=== PATIENT | female | born 1980 | race Caucasian/White ===

== ENCOUNTER 2019-11-15 11:09 | Emergency (ER) | payer MEDICAID ==
[~2019-11-15] VITALS: Ht 167.6 cm; Wt 83.6 kg
[~2019-11-15 11:09] MED LIST: PREN-84 PO
[2019-11-15 11:12] VITALS: BP 114/74
[2019-11-15] MEDS ORDERED: TETanus/Pertussis (Acell)/Diphther VAC/PF (Tdap-Adult) 0.5ml syringe IMVAC ONE (12:40)
[2019-11-15] MEDS ORDERED: bacitracin 15gm ointment TP ONE (12:40)
== END 2019-11-15 13:20 | disposition home or self-care (01) ==
LOC: ER 11:10
DX: S90.812A Abrasion, left foot, initial encounter (principal); M79.672 Pain in left foot; Z72.89 Other problems related to lifestyle; Z79.899 Other long term (current) drug therapy; W22.8XXA Striking against or struck by other objects, initial encounter; Y93.89 Activity, other specified; Y92.89 Other specified places as the place of occurrence of the external cause; Y99.8 Other external cause status
CPT/HCPCS: 73630; 90471; 90715; 99283

== ENCOUNTER 2020-04-17 15:52 | Emergency (ER) | payer MEDICAID ==
[~2020-04-17] VITALS: Ht 167.6 cm; Wt 83.6 kg
== END 2020-04-17 16:14 | disposition home or self-care (01) ==
LOC: ER 15:53
DX: U07.1 COVID-19 (principal); F12.10 Cannabis abuse, uncomplicated; Z79.899 Other long term (current) drug therapy
CPT/HCPCS: 36415; 87635; 99283

== ENCOUNTER 2021-11-14 18:58 | Emergency (ER) | payer MEDICAID ==
[~2021-11-14] VITALS: Ht 167.6 cm; Wt 84.7 kg
[2021-11-14 19:23] VITALS: BP 142/97
[2021-11-14] MEDS ORDERED: ketorolac tromethamine 15mg/ml inj. IM ONE (19:45)
[2021-11-14] MEDS ORDERED: CEPH250T PO (19:52)
== END 2021-11-14 20:11 | disposition home or self-care (01) ==
LOC: ER 18:59
DX: S91.312A Laceration without foreign body, left foot, initial encounter (principal); Z79.2 Long term (current) use of antibiotics; W45.8XXA Other foreign body or object entering through skin, initial encounter; Y93.89 Activity, other specified; Y92.89 Other specified places as the place of occurrence of the external cause; Y99.8 Other external cause status
CPT/HCPCS: 73610; 96372; 99283; J1885

== ENCOUNTER 2022-09-14 08:22 | Emergency (ER) | payer MEDICAID ==
[~2022-09-14] VITALS: Ht 167.6 cm; Wt 83.8 kg
[2022-09-14 08:25] VITALS: BP 126/88
[2022-09-14] MEDS ORDERED: LIDOcaine 5% patch TP STA (08:57)
[2022-09-14] MEDS ORDERED: ketorolac trometh inj. 60 MG/2 ML VIAL IM ONE (09:00)
[2022-09-14] MEDS ORDERED: LIDO-15 TD (09:15)
[2022-09-14] MEDS ORDERED: ketorolac trometh. 30mg/ml inj. IM ONE (09:15)
[2022-09-14] MEDS ORDERED: IBUP-1986 PO (09:15)
[2022-09-14] MEDS ORDERED: DICL100G30 TOP (09:15)
--- NOTE | 2022-09-14 09:26 | NUR ---
PER [facility] [employer] [employer] PRINT SHOP PT OK TO DC
== END 2022-09-14 09:27 | disposition home or self-care (01) ==
LOC: ER 08:23
DX: M54.50 Low back pain, unspecified (principal); W19.XXXA Unspecified fall, initial encounter; Y93.89 Activity, other specified; Y92.89 Other specified places as the place of occurrence of the external cause; Y99.8 Other external cause status
CPT/HCPCS: 72100; 72220; 96372; 99284; J1885